=== PATIENT | male | born 1995 | race Caucasian/White ===

== ENCOUNTER 2021-04-06 20:59 | Emergency (ER) | payer OTHER ==
[2021-04-06] MEDS ORDERED: DIPH,PERTUSS(ACELL),TET VAC/PF 0.5 ML IM-VACC ONE (21:30)
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
[2021-04-06 22:36] VITALS: BP 124/67
--- NOTE | 2021-04-06 22:36 | NUR ---
ARMANDO HOLDEN IN TO [facility]ATHR[facility] GARCIA PRIOR TO IRRIGAITON AND SUTURE PLACEMENT.
--- NOTE | 2021-04-06 22:59 | NUR ---
WOUND IRRIGAED. READY FOR SUTURES.
[2021-04-06] MEDS ORDERED: IBUPROFEN 800 MG TABLET ONE (23:27)
[2021-04-07] MEDS ORDERED: IBUPROFEN 800 MG TABLET PO ONE
== END 2021-04-06 23:45 | disposition home or self-care (01) ==
LOC: ED 23:00
DX: S61.012A Laceration without foreign body of left thumb without damage to nail, initial encounter (principal); W54.0XXA Bitten by dog, initial encounter; Y93.89 Activity, other specified; Y92.009 Unspecified place in unspecified non-institutional (private) residence as the place of occurrence of the external cause; Y99.8 Other external cause status
CPT/HCPCS: 12001; 90471; 90715

== ENCOUNTER 2021-05-01 10:22 | Outpatient (CLI) | payer OTHER | END 2021-05-01 23:59 | disposition home or self-care (01) | LOC: CFH 10:22 | PROVIDERS: ATTEND Physician Assistant Surgical | DX: S90.32XA Contusion of left foot, initial encounter (principal); M79.672 Pain in left foot; X58.XXXA Exposure to other specified factors, initial encounter; Y93.89 Activity, other specified; Y92.89 Other specified places as the place of occurrence of the external cause; Y99.8 Other external cause status ==